=== PATIENT | male | born 1975 | race Caucasian/White ===

== ENCOUNTER 2020-04-23 22:25 | Emergency (ER) | payer SELFPAY ==
[~2020-04-23] VITALS: Ht 177.8 cm; Wt 81.6 kg
[2020-04-23] MEDS ORDERED: HYDROmorphone 2 MG/ML VIAL (DILAUDID) IV ONE (23:00)
[2020-04-23] MEDS ORDERED: NS IV 1000 ML 1,000 ML IV SCH (23:00)
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
[2020-04-23 23:24] LABS: BASOPHILS # (AUTO) 0.1 10^3/uL (0.0-0.1); BASOPHILS % (AUTO) 1 % (0-10); EOSINOPHILS # (AUTO) 0.5 10^3/uL (0.0-0.3); EOSINOPHILS % (AUTO) 7 % (0-10); HEMATOCRIT 40 % (40-54); HEMOGLOBIN 13.8 G/DL (13.3-17.7); LYMPHOCYTES # (AUTO) 1.9 X 10^3 (1.0-4.0); LYMPHOCYTES % (AUTO) 23 % (12-44); MEAN CORPUSCULAR HEMOGLOBIN 30 PG (25-34); MEAN CORPUSCULAR HGB CONC 34 G/DL (32-36); MEAN CORPUSCULAR VOLUME 87 FL (80-99); MEAN PLATELET VOLUME 10.5 FL (7.4-10.4); MONOCYTES # (AUTO) 0.9 X 10^3 (0.0-1.0); MONOCYTES % (AUTO) 10 % (0-12); NEUTROPHILS % (AUTO) 60 % (42-75); PLATELET COUNT 372 10^3/uL (130-400); RED CELL DISTRIBUTION WIDTH 13.8 % (10.0-14.5); WHITE BLOOD COUNT 8.3 10^3/uL (4.3-11.0)
[2020-04-23 23:43] LABS: ALANINE AMINOTRANSFERASE 23 U/L (0-55); ALBUMIN 4.3 GM/DL (3.2-4.5); ALKALINE PHOSPHATASE 78 U/L (40-136); BILIRUBIN,TOTAL 0.2 MG/DL (0.1-1.0); BUN/CREATININE RATIO 13; CARBON DIOXIDE 26 MMOL/L (21-32); CREATININE SERUM 1.12 MG/DL (0.60-1.30); GFR ESTIMATED > 60; GLUCOSE 123 MG/DL (70-105); TOTAL PROTEIN 6.8 GM/DL (6.4-8.2)
[2020-04-23] MEDS ORDERED: HYDROmorphone 2 MG/ML VIAL (DILAUDID) IVP ONE (23:45)
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
--- NOTE | 2020-04-23 23:47 | NUR ---
SOAKING THE PT. RIGHT HAND IN A SALINE BATH.
[2020-04-23 23:58] LABS: CHLORIDE 103 MMOL/L (98-107); POTASSIUM 3.8 MMOL/L (3.6-5.0); SODIUM 144 MMOL/L (135-145)
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
[2020-04-24 00:30] VITALS: BP 124/74
--- NOTE | 2020-04-24 00:42 | NUR ---
pt. will go to [facility] by pov. Report given to
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
== END 2020-04-24 00:45 | disposition short-term general hospital (02) ==
LOC: ER FS 22:29
DX: T23.091A Burn of unspecified degree of multiple sites of right wrist and hand, initial encounter (principal); S61.411A Laceration without foreign body of right hand, initial encounter; T20.09XA Burn of unspecified degree of multiple sites of head, face, and neck, initial encounter; T31.10 Burns involving 10-19% of body surface with 0% to 9% third degree burns; H92.01 Otalgia, right ear; W39.XXXA Discharge of firework, initial encounter
CPT/HCPCS: 36415; 73130; 80053; 85025